=== PATIENT | female | born 1970 | race Caucasian/White ===

== ENCOUNTER 2020-11-08 13:20 | Emergency (ER) | payer MEDICAID ==
[~2020-11-08] VITALS: Ht 162.6 cm; Wt 68.2 kg
[2020-11-08] MEDS ORDERED: ondansetron 4mg rapidly disintigrating tab PO ONE (13:55)
[2020-11-08] MEDS ORDERED: morphine 4 MG/ML inj SYRINge IM ONE (13:55)
[2020-11-08] MEDS ORDERED: HYDROcodone/acetaminophen 10/325mg tab PO ONE (14:10)
[2020-11-08] MEDS ORDERED: HYDR-3972 PO (14:17)
[2020-11-08 14:48] VITALS: BP 146/77
== END 2020-11-08 15:03 | disposition home or self-care (01) ==
LOC: ER 13:21
DX: S42.301A Unspecified fracture of shaft of humerus, right arm, initial encounter for closed fracture (principal); S80.01XA Contusion of right knee, initial encounter; M25.511 Pain in right shoulder; Z79.899 Other long term (current) drug therapy; W19.XXXA Unspecified fall, initial encounter; Y93.89 Activity, other specified; Y92.89 Other specified places as the place of occurrence of the external cause; Y99.8 Other external cause status
CPT/HCPCS: 29105; 73030; 96372; 99283; J2270

== ENCOUNTER 2020-11-09 15:01 | Emergency (ER) | payer MEDICAID ==
[~2020-11-09] VITALS: Ht 162.6 cm; Wt 68.2 kg
[~2020-11-09 15:01] MED LIST: HYDR-3972 PO
[2020-11-09 15:20] VITALS: BP 136/80
== END 2020-11-09 17:03 | disposition left against medical advice (07) ==
LOC: ER 15:03
DX: S42.91XD Fracture of right shoulder girdle, part unspecified, subsequent encounter for fracture with routine healing (principal); T39.1X5A Adverse effect of 4-Aminophenol derivatives, initial encounter; R11.0 Nausea; Z79.899 Other long term (current) drug therapy; Y92.89 Other specified places as the place of occurrence of the external cause
CPT/HCPCS: 99281

== ENCOUNTER 2020-11-13 13:29 | Emergency (ER) | payer MEDICAID | END 2020-11-13 13:55 | disposition left against medical advice (07) | LOC: ER 13:30 | DX: M79.603 Pain in arm, unspecified (principal); Z53.21 Procedure and treatment not carried out due to patient leaving prior to being seen by health care provider ==